=== PATIENT | male | born 1980 | race Caucasian/White ===

== ENCOUNTER 2017-07-15 17:57 | Emergency (ER) | payer OTHER, SELFPAY ==
[~2017-07-15] VITALS: Ht 175.3 cm; Wt 72.7 kg
[~2017-07-15 17:57] MED LIST: AUGM875T28 PO; CELE10TA PO; CLEO300C2 PO; HYDR-3713 PO; NO HOME MEDS; celexa PO
[2017-07-15] MEDS ORDERED: FLUORESCEIN OPHTH 1 MG STRIP OU ONE (18:45)
[2017-07-15] MEDS ORDERED: TETRACAINE 0.5% OPHTH SOLN 4ML OU ONE (18:45)
[2017-07-15] MEDS ORDERED: ERYTOIN8 OS (19:39)
[2017-07-15 19:47] VITALS: BP 117/70
== END 2017-07-15 19:49 | disposition home or self-care (01) ==
LOC: M ED 17:57
DX: T15.02XA Foreign body in cornea, left eye, initial encounter (principal); Y92.89 Other specified places as the place of occurrence of the external cause; Y93.89 Activity, other specified; Y99.0 Civilian activity done for income or pay

== ENCOUNTER 2018-07-17 16:16 | Emergency (ER) | payer SELFPAY, OTHER ==
[2018-07-17] MEDS: KETOROLAC 30 MG/ML VIAL (J1885) IV (16:45)
[2018-07-17] MEDS ORDERED: ISOVUE-370 76% 100ML VIAL (Q9967) As Ordered (17:21)
[2018-07-17 17:36] LABS: BASO # 0.1 10^3/uL (0.0-0.2); BASO % 0.6 % (0.0-1.0); EOS # 0.4 10^3/uL (0.0-0.50); EOS % 3.6 % (0.0-3.0); HEMOGLOBIN 14.4 g/dl (13.5-17.5); IMMATURE GRANULOCYTE % 0.2 % (0-3.0); LYMPH # 2.7 10^3/uL (1.5-4.5); MEAN CORPUSCULAR HGB CONC 34.3 g/dl (32.0-36.5); MEAN CORPUSCULAR VOLUME 93.3 fl (80.0-96.0); MONO # 1.1 10^3/uL (0.0-0.8); NEUTROPHILS # 5.5 10^3/uL (1.8-7.7); NEUTROPHILS % 56.6 % (36.0-66.0); PLATELET COUNT, AUTOMATED 314 10^3/uL (150-450); RED CELL DISTRIBUTION WIDTH 14.1 % (11.5-14.5); WHITE BLOOD COUNT 9.7 10^3/uL (4.0-10.0)
[2018-07-17 17:50] LABS: ANION GAP 8 MEQ/L (8-16); BLOOD UREA NITROGEN 14 MG/DL (7-18); CALCIUM LEVEL 8.4 MG/DL (8.5-10.1); CARBON DIOXIDE LEVEL 24 MEQ/L (21-32); CHLORIDE LEVEL 107 MEQ/L (98-107); CPK CREATINE PHOSPHOKINASE 359 U/L (39-308); CREATININE FOR GFR 1.17 MG/DL (0.70-1.30); GLOMERULAR FILTRATION RATE > 60.0 (>60); GLUCOSE, FASTING 88 MG/DL (70-100); MB/CK RELATIVE INDEX 0.42 (< OR =4); POTASSIUM SERUM 3.8 MEQ/L (3.5-5.1); SODIUM LEVEL 139 MEQ/L (136-145); TROPONIN I < 0.02 NG/ML (< 0.10)
[2018-07-17 18:14] LABS: ALBUMIN 3.4 GM/DL (3.2-5.2); ALBUMIN/GLOBULIN RATIO 0.92 (1.00-1.93); ALKALINE PHOSPHATASE 72 U/L (45-117); ALT/SGPT 27 U/L (12-78); AST/SGOT 28 U/L (7-37); BILIRUBIN,DIRECT < 0.1 MG/DL (0.0-0.2); BILIRUBIN,TOTAL 0.3 MG/DL (0.2-1.0); LIPASE 192 U/L (73-393); TOTAL PROTEIN 7.1 GM/DL (6.4-8.2)
[2018-07-17 22:13] LABS: CPK CREATINE PHOSPHOKINASE 357 U/L (39-308); MB/CK RELATIVE INDEX 0.36 (< OR =4); TROPONIN I < 0.02 NG/ML (< 0.10)
== END 2018-07-17 23:00 | disposition home or self-care (01) ==
LOC: M ED 16:16
DX: R07.89 Other chest pain (principal); R00.1 Bradycardia, unspecified; F32.9 Major depressive disorder, single episode, unspecified; I45.6 Pre-excitation syndrome; R91.8 Other nonspecific abnormal finding of lung field; Z72.0 Tobacco use; Z82.49 Family history of ischemic heart disease and other diseases of the circulatory system; Z79.82 Long term (current) use of aspirin
CPT/HCPCS: Q9967